=== PATIENT | male | born 1955 | race African-American/Black ===

== ENCOUNTER 2025-05-05 19:40 | Emergency (ER) | payer OTHER ==
[~2025-05-05] VITALS: Ht 175.3 cm; Wt 88.6 kg
[2025-05-05 19:48] VITALS: BP 138/77; PULSE 73; RESP 18; TEMP 98; O2SAT 96
[2025-05-05 20:11] LABS: GLUCOMETER DEV NAME(LOC) ERT.7; GLUCOSE,POINT OF CARE 78 MG/DL (70-110)
[2025-05-05] MEDS: HYDROCODONE/ACETAMINOPHEN 5-325 MG TABLET PO ONE (22:45)
== END 2025-05-06 01:08 | disposition home or self-care (01) ==
LOC: EMS 19:40
DX: M25.561 Pain in right knee (principal); I10 Essential (primary) hypertension; M19.90 Unspecified osteoarthritis, unspecified site; E11.9 Type 2 diabetes mellitus without complications; Z88.6 Allergy status to analgesic agent
CPT/HCPCS: 82962; 99283